=== PATIENT | female | born 1945 | race Caucasian/White ===

== ENCOUNTER 2017-01-19 07:46 | Emergency (ER) | payer MEDICARE ==
[2017-01-19 08:48] LABS: BLOOD UREA NITROGEN 6 mg/dL (7-17); CALCIUM 9.2 mg/dL (8.4-10.2); CHLORIDE 91 mmol/L (98-107); EST GLOMERULAR FILTRATION RATE > 60 mL/min; GLUCOSE 99 mg/dL (70-100); MAGNESIUM 1.9 mg/dL (1.6-2.3); POTASSIUM 3.5 mmol/L (3.5-5.1); SODIUM 130 mmol/L (137-145)
[2017-01-19 08:55] LABS: BASOPHILS 0.6 % (0.0-2.0); EOSINOPHILS 1.6 % (0.0-6.0); EOSINOPHILS# 0.1 X 10^3uL (0.0-0.4); HEMATOCRIT 39.3 % (36.0-48.0); HEMOGLOBIN 13.1 g/dL (12.0-16.0); LYMPHOCYTES 15.5 % (20.0-40.0); LYMPHOCYTES# 1.2 X 10^3uL (0.8-3.8); MEAN CELL VOLUME 80.3 fL (80.0-100.0); MEAN CORPUS. HGB CONCENTRATION 33.4 g/dL (32.0-36.0); MEAN CORPUSCULAR HEMOGLOBIN 26.8 pg (29.0-35.0); MEAN PLATELET VOLUME 7.1 fL (7.4-10.4); MONOCYTES 7.5 % (2.0-10.0); MONOCYTES# 0.6 X 10^3uL (0.2-1.0); NEUTROPHILS 74.8 % (54.0-75.0); NEUTROPHILS# 5.5 X 10^3uL (2.6-6.7); PLATELET COUNT 403 X 10^3uL (130-440); RED BLOOD COUNT 4.89 X 10^6uL (4.20-6.10); RED CELL DISTRIBUTION WIDTH 14.1 % (11.5-14.5); WHITE BLOOD COUNT 7.4 X 10^3uL (3.9-10.7)
[2017-01-19 09:00] LABS: TROPONIN I < 0.012 ng/mL (0.00-0.034)
[2017-01-19] MEDS ORDERED: ONDANSETRON HCL 4 MG/2 ML VIAL ONE (09:02)
[2017-01-19] MEDS ORDERED: LORazepam 0.5 MG TABLET ONE (09:02)
[2017-01-19] MEDS ORDERED: NITROGLYCERIN 0.4 MG TAB.SUBL SUBLINGUAL ONE (09:02)
[2017-01-19] MEDS ORDERED: LORazepam 2 MG/ML INJ ONE (09:35)
--- NOTE | 2017-01-19 11:16 | ER PHYSICIAN DOCUMENTATION ---
Physician Documentation [facility] Name:Donna Ramirez Age:71 yrs Sex:Female :1945 Arrival Date:01/19/2017 Time:07:41 Bed4 Private MD:No PCP, Identified ED LeslyemejiaIrineo Disposition: 01/19/17 10:44 Discharged to Home/Self Care. Impression: Chest Pain. - Condition is Good. - Discharge Instructions: CHEST PAIN, Uncertain Cause. - Prescriptions for Nitrostat 0.4 mg Sublingual Tablet, Sublingual - place 1 tablet by SUBLINGUAL route one time As needed - at the first sign of an attack; no more than 3 tablets are recommended within a 15 minute period.; 25 tablet. - Medical Reconciliation form form. - Follow up: Private Physician; When: 4- 6 days; Reason: Recheck today's complaints, Continuance of care. - Problem is new. - Symptoms have improved. Historical: - Allergies: [place] fruit; - Home Meds: 1. Aspirin Oral 2. Ativan 0.5 mg oral tab 2 tabs 2 times per day as needed 3. Microzide oral 4. verapamil Oral 5. Levothroid Oral - PMHx: ANXIETY; gastroparesis; HYPERTENSION; - PSHx: HYSTERECTOMY; THYROIDECTOMY; - Tetanus: < 10 years. - Ebola Screening: : Patient negative for fever greater than or equal to 101.5 degrees Fahrenheit, and additional compatible Ebola Virus Disease symptoms. Patient denies exposure to infectious person. Patient denies travel to an Ebola-affected area in the 21 days before illness onset. No symptoms or risks identified at this time. . - Social history: Smoking status: Patient states was never smoker of tobacco. - Immunization history: Pneumococcal vaccine status is unknown, Flu Vaccine >1 year. Vital Signs: 01/19 07:44 BP 160 / 88 RA Sitting (auto/reg); Pulse 91 RA; Resp 24 S; Temp 97.7(O); Pulse Ox 98% em3 on R/A; Weight 64.86 kg (R); Height 5 ft. 6 in. (167.64 cm) (R); Pain 6/10; 09:15 BP 155 / 79 (auto/); tg 09:19 Pulse 79 MON; Resp 20; Pulse Ox 96% ; tg 10:14 Pulse 78 MON; Resp 17; Pulse Ox 100% ; tg 10:15 BP 162 / 65 (auto/); tg 10:19 Pulse 84 MON; Resp 17; tg 07:44 Body Mass Index 23.08 (64.86 kg, 167.64 cm) em3 MDM: 08:19 Patient medically screened. tl1 01/19 08:50 Order name: DDIMER; Complete Time: 10:08 EDMS 01/19 10:06 Interpretation: Normal: DDIMER 223. tl1 01/19 08:56 Order name: CBC AUTO DIF, MDIF/RMOR IF IND; Complete Time: 10:08 EDMS 01/19 10:06 Interpretation: WHITE BLOOD COUNT 7.4; HEMOGLOBIN 13.1; HEMATOCRIT 39.3; PLATELET COUNT tl1 403. 01/19 09:01 Order name: BASIC METABOLIC PANEL; Complete Time: 10:08 EDMS 01/19 10:07 Interpretation: Normal Except: SODIUM 130; CHLORIDE 91. tl1 01/19 09:01 Order name: MAGNESIUM; Complete Time: 10:08 EDMS 01/19 10:07 Interpretation: Normal: MAGNESIUM 1.9. tl1 01/19 09:01 Order name: TROPONIN I; Complete Time: 10:08 EDMS 04 10:07 Interpretation: Normal: TROPONIN I < 0.012. tl1 01/20 07:35 Order name: CHEST; [place]ING[place] [address] EDMS 01/19 08:27 Order name: 12-lead EKG; Complete Time: 08:30 tl1 01/19 08:27 Order name: Iv Saline Lock; Complete Time: 08:31 tl1 01/19 08:27 Order name: Place Patient On Monitor; Complete Time: 08:30 tl1 01/19 08:27 Order name: Pulse Ox Continuous; Complete Time: 08:30 tl1 Dispensed Medications: 08:34 Drug: NS 0.9% 1000 ml; Route: IV; Rate: bolus; Site: right antecubital; Delivery: tg [place] [facility]; 09:45 Follow up: IV Status: Completed infusion; IV Intake: 1000ml tg 08:39 CANCELLED (Other Intervention Used): Aspirin Chewable Tablet 324 mg PO once tg 09:01 Drug: Zofran 4 mg; Route: IVP; Infused Over: 2 mins; Site: right antecubital; tg 09:18 Follow up: Response: Nausea is decreased tg 09:01 Drug: Nitroglycerin 0.4 mg; Route: Sublingual; tg 09:17 Follow up: Response: No adverse reaction; No change in condition tg 09:01 Drug: Ativan 0.5 mg; Route: PO; tg 09:17 Follow up: Response: Anxiety unchanged tg 09:30 CANCELLED (Other Intervention Used): Ativan 1 mg PO once tg 09:32 Drug: Aspirin 81 mg; Route: PO; tg 10:10 Follow up: Response: No adverse reaction tg 09:32 Drug: Ativan 1 mg; Route: IVP; Site: right antecubital; tg 10:09 Follow up: Response: Anxiety decreased tg 10:43 CANCELLED (Physician Discretion): Zofran 4 mg IVP once over 2 mins tg Signatures: Isreal Richard RN RN tg Irineo Felton MD MD tl1
--- NOTE | 2017-01-19 11:16 | ER NURSING DOCUMENTATION ---
Nurse's Notes [facility] Name:Donna Ramirez Age:71 yrs Sex:Female :1945 Arrival Date:01/19/2017 Time:07:41 Bed4 Private MD:No PCP, Identified Diagnosis:Chest Pain Presentation: 01/19 07:44 Acuity: MARISA 2 tg 07:47 Presenting complaint: Patient states: Arrived to , had trouble sleeping, tg nausea, vomiting, anxiety. Transition of care: patient was not received from another setting of care. 07:47 Method Of Arrival: Private Vehicle tg Triage Assessment: 08:36 General: Appears uncomfortable, well developed, well groomed, Behavior is anxious, tg cooperative. Pain: Complains of pain in chest Quality of pain is described as tightness Aggravated by stress. Neuro: Level of Consciousness is awake, alert. Cardiovascular: Capillary refill < 3 seconds Rhythm is regular. Respiratory: Reports shortness of breath the patient has mild shortness of breath. GI: Reports nausea, vomiting. Derm: Skin is pink, warm & dry. Historical: - Allergies: [place] fruit; - Home Meds: 1. Aspirin Oral 2. Ativan 0.5 mg oral tab 2 tabs 2 times per day as needed 3. Microzide oral 4. verapamil Oral 5. Levothroid Oral - PMHx: ANXIETY; gastroparesis; HYPERTENSION; - PSHx: HYSTERECTOMY; THYROIDECTOMY; - Tetanus: < 10 years. - Ebola Screening: : Patient negative for fever greater than or equal to 101.5 degrees Fahrenheit, and additional compatible Ebola Virus Disease symptoms. Patient denies exposure to infectious person. Patient denies travel to an Ebola-affected area in the 21 days before illness onset. No symptoms or risks identified at this time. . - Social history: Smoking status: Patient states was never smoker of tobacco. - Immunization history: Pneumococcal vaccine status is unknown, Flu Vaccine >1 year. Screenin:37 Infectious Disease Risk Unable to Obtain. Abuse screen: Denies threats or abuse. Denies tg injuries from another. Nutritional screening: No deficits noted. Assessment: 08:39 Reassessment: Recent increased stress from grandson who is dealing with cancer.. tg 11:15 Respiratory: Respiratory effort is even, unlabored. tg Vital Signs: 07:44 BP 160 / 88 RA Sitting (auto/reg); Pulse 91 RA; Resp 24 S; Temp 97.7(O); Pulse Ox 98% em3 on R/A; Weight 64.86 kg (R); Height 5 ft. 6 in. (167.64 cm) (R); Pain 6/10; 09:15 BP 155 / 79 (auto/); tg 09:19 Pulse 79 MON; Resp 20; Pulse Ox 96% ; tg 10:14 Pulse 78 MON; Resp 17; Pulse Ox 100% ; tg 10:15 BP 162 / 65 (auto/); tg 10:19 Pulse 84 MON; Resp 17; tg 07:44 Body Mass Index 23.08 (64.86 kg, 167.64 cm) em3 ED Course: 07:41 Patient arrived in ED. em3 07:43 Isreal Richard, RN is Primary Nurse. tg 07:44 Triage completed. tg 07:44 Valuables Remains with patient Patient has correct armband on for positive em3 identification. Placed in gown. Bed in low position. Call light in reach. Side rails up X 1. 07:57 EKG done. (by ED staff). Reviewed by Irineo Felton MD. Inserted peripheral IV: 20 gauge in tg right antecubital area and blood collected. 08:19 Irineo Felton MD is Attending Physician. tl1 08:35 jive developer on. Pulse ox on. tg 10:20 Assisted to bathroom. tg 11:03 No PCP, Identified is Private Physician. em3 Administered Medications: 08:34 Drug: NS 0.9% 1000 ml; Route: IV; Rate: bolus; Site: right antecubital; Delivery: tg [place] [facility]; 09:45 Follow up: IV Status: Completed infusion; IV Intake: 1000ml tg 08:39 CANCELLED (Other Intervention Used): Aspirin Chewable Tablet 324 mg PO once tg 09:01 Drug: Zofran 4 mg; Route: IVP; Infused Over: 2 mins; Site: right antecubital; tg 09:18 Follow up: Response: Nausea is decreased tg 09:01 Drug: Nitroglycerin 0.4 mg; Route: Sublingual; tg 09:17 Follow up: Response: No adverse reaction; No change in condition tg 09:01 Drug: Ativan 0.5 mg; Route: PO; tg 09:17 Follow up: Response: Anxiety unchanged tg 09:30 CANCELLED (Other Intervention Used): Ativan 1 mg PO once tg 09:32 Drug: Aspirin 81 mg; Route: PO; tg 10:10 Follow up: Response: No adverse reaction tg 09:32 Drug: Ativan 1 mg; Route: IVP; Site: right antecubital; tg 10:09 Follow up: Response: Anxiety decreased tg 10:43 CANCELLED (Physician Discretion): Zofran 4 mg IVP once over 2 mins tg Intake: 09:45 IV: 1000ml; Total: 1000ml. tg Outcome: 10:44 Discharge ordered by . tl1 11:13 Discharged to home ambulatory, with family. tg 11:13 Condition: improved 11:13 Discharge Assessment: Patient awake, alert and oriented x 3. No cognitive and/or functional deficits noted. Patient verbalized understanding of disposition instructions. anxiety, headache, and chest tightness markedly better at discharge. Pt smiling, talkative. 11:13 Instructed on discharge instructions, follow up and referral plans. medication usage, Prescriptions given X 1. 11:13 IV D/Bong 11:15 Patient left the ED. tg Signatures: Isreal Richard, RN RN tg [address] em3 Irineo Felton MD MD tl1
--- NOTE | 2017-01-20 07:34 | RADIOLOGY REPORT ---
HISTORY: Shortness of breath COMPARISON: None. FINDINGS: 1 view of the chest obtained. Heart size within normal limits. Surgical clips project over the right lower neck. 4 mm calcified nodule projects over the right lower lobe. Lungs are otherwise clear. No e ffusion or pneumothorax. No focal bone lesion identified. IMPRESSION: No acute abnormality. Final Electronic Signature: This report was electronically signed by Pancho Galarza MD on 01/20/2017 7:32 AM. enrique /
== END 2017-01-19 11:16 | disposition home or self-care (01) ==
LOC: ER 07:46
DX: R07.89 Other chest pain (principal); F41.9 Anxiety disorder, unspecified; R06.00 Dyspnea, unspecified; R11.0 Nausea; I10 Essential (primary) hypertension; Z79.82 Long term (current) use of aspirin; Z79.899 Other long term (current) drug therapy
CPT/HCPCS: 71010; 80048; 83735; 84484; 85025; 85379; 93005; 96361; 96374; 96375; 99284; J2060; J2405